=== PATIENT | male | born 1960 | race Two or more races ===

== ENCOUNTER 2020-11-22 13:05 | Emergency (ER) | payer SELFPAY ==
[~2020-11-22] VITALS: Ht 177.8 cm; Wt 89.4 kg
[2020-11-22] MEDS ORDERED: PROMETHAZINE HCL 25 MG/ML 1ML IV ONE (14:45)
[2020-11-22] MEDS ORDERED: cefTRIAXone 1GM/50ML D5W 50 ML IV ONE (14:45)
[2020-11-22] MEDS ORDERED: MORPHINE SULFATE INJECTION 2 MG/ML SYRG IV ONE (14:45)
[2020-11-22] MEDS ORDERED: LIDOCAINE 1% HCL (LOCAL ANESTH.) INJ 20ML MDV ID ONE (16:15)
[2020-11-22] MEDS ORDERED: TETANUS-DIPTH-ACEL PERTUSSIS 0.5ML SYR Tdap IM ONE (16:15)
[2020-11-22] MEDS ORDERED: OXYCODONE W/ ACETAMINOPHEN 5/325MG TABLET PO ONE (16:15)
[2020-11-22 17:00] VITALS: BP 108/59
[2020-11-22] MEDS ORDERED: BACITRACIN TOP OINT 1 UD PKG TOP ONE (17:15)
[2020-11-22] MEDS ORDERED: NEOMYCIN-BACITRACIN-POLYM UNITDOSE PKG TOP OINT TOP ONE (17:15)
== END 2020-11-22 17:50 | disposition home or self-care (01) ==
LOC: ER 13:05
DX: S91.012A Laceration without foreign body, left ankle, initial encounter (principal); W26.8XXA Contact with other sharp object(s), not elsewhere classified, initial encounter; Y93.89 Activity, other specified; Y92.89 Other specified places as the place of occurrence of the external cause; Y99.8 Other external cause status
CPT/HCPCS: 12005; 73600; 90471; 90715; 96365; 96375; 99285; J0696; J2001; J2270; J2550